=== PATIENT | male | born 1990 | race Two or more races ===

== ENCOUNTER → 2021-01-10 | Outpatient (CLI) | payer OTHER ==
[~2021-01-10] MED LIST: FERSU300; Oxcarbazepine150 MG
[2021-01-19 16:10] LABS: COTININE <10.0 ng/mL (.); NICOTINE <10.0 ng/mL (.)
== END ==
LOC: LAB SHORT 11:42 → LAB 11:42
PROVIDERS: Podiatrist Foot & Ankle Surgery
DX: Z01.818 Encounter for other preprocedural examination (principal); S90.552A Superficial foreign body, left ankle, initial encounter
CPT/HCPCS: G0480

== ENCOUNTER 2021-01-26 10:53 | Day surgery (SDC) | payer OTHER ==
[~2021-01-26] VITALS: Ht 180.3 cm; Wt 110.2 kg
[2021-01-26] MEDS ORDERED: Oxcarbazepine150 MG (11:50)
[2021-01-26] MEDS ORDERED: FERSU300 (11:50)
--- NOTE | 2021-01-26 13:37 | NUR ---
01/26/21 1337 Esperanza Galloway BUPIVACAINE 0.5% 30 MLS MIXED W/ EPI 0.15 ML PER ORDER TO CONSTITUTE BUPIVACAINE 0.5% 1:200,000 FOR INJECTION AT OPSITE BY DR MURPHY FOR PAIN CONTROL. 30 MLS INJECTED.
== END 2021-01-26 15:15 | disposition home or self-care (01) ==
LOC: ORSCSDS 10:53
PROVIDERS: Podiatrist Foot & Ankle Surgery
PROC: 0YBJ0ZZ Excision of Left Lower Leg, Open Approach (ICD-10-PCS; principal; 2021-01-26 12:15)
DX: S90.55 Superficial foreign body of ankle (principal); J45.909 Unspecified asthma, uncomplicated; F31.9 Bipolar disorder, unspecified; F41.8 Other specified anxiety disorders; E66.9 Obesity, unspecified; Z68.33 Body mass index [BMI] 33.0-33.9, adult; Z87.891 Personal history of nicotine dependence; Z79.899 Other long term (current) drug therapy
CPT/HCPCS: A9270; J0171; J1100; J1885; J2250; J2405; J2704; J3010; J3370; J7120